=== PATIENT | male | born 1985 | race Hispanic/Latino ===

== ENCOUNTER 2021-04-28 15:40 | Inpatient (IN) | payer OTHER ==
[~2021-04-28 15:40] MED LIST: Iopamidol-370 76% 500 ML 1 ML ONE
[2021-04-28] MEDS ORDERED: Ketamine 50 MG/ML (10ML VIAL) ONE (15:44)
[2021-04-28] MEDS ORDERED: Rocuronium Bromide 10 MG/ML (10ML VIAL) ONE (15:44)
[2021-04-28] MEDS ORDERED: Fentanyl CADD 100 ML IV SCH ×2 (16:00→17:00)
[2021-04-28 16:10] LABS: #Basophils 0.1 thou/uL (0.0-0.2); #Eosinphils 0.8 thou/uL (0.0-0.7); #Lymphocytes 2.6 thou/uL (1.20-3.40); #Monocytes 0.6 thou/uL (0.11-0.59); #Neutrophils 1.6 thou/uL (1.40-6.50); %Basophils 1.1 % (0.0-1.0); %Eosinophils 14.9 % (0.0-10.0); %Lymphocytes 46.2 % (21.0-51.0); %Monocytes 9.8 % (0.0-10.0); Hemoglobin 15.1 g/dL (14.0-18.0); Mean Corpuscular HGB CONC 33.1 g/dL (32.0-36.0); Mean Corpuscular Volume 99.9 fL (78.0-98.0); Mean Platelet Volume 8.3 fL (7.4-10.4); Platelet Count 145 thou/uL (130-400); RBC Distribution Width 12.9 % (11.5-14.5); Red Blood Cell (RBC) Count 4.57 mill/uL (4.70-6.10); White Blood Cell (WBC) Count 5.7 thou/uL (4.8-10.8)
[2021-04-28 16:20] LABS: INR-International Normal Ratio 1.1
[2021-04-28 16:21] LABS: PTT 33.7 sec (22.9-36.1)
[2021-04-28] MEDS ORDERED: Dextrose 5% in Water 1,000 ML IV PRN (16:27)
[2021-04-28] MEDS ORDERED: hydrALAZINE 20 MG/ML VIAL SLOW IVP PRN (16:27)
[2021-04-28] MEDS ORDERED: Ondansetron PF 4 MG/2 ML Vial IVP PRN (16:27)
[2021-04-28] MEDS ORDERED: Dextrose 50% Abboject 50 ML SYRINGE SLOW IVP PRN (16:27)
[2021-04-28 16:30] LABS: Bacteria/HPF None Seen HPF (None Seen); Bilirubin Negative (Negative); Blood, Urine Negative (Negative); Clarity Clear (Clear); Glucose, Urine (Dipstick) Normal (Negative); Ketone, Urine Negative (Negative); Leukocyte Negative Leu/uL (Negative); Nitrite Negative (Negative); Protein, Urine (Dipstick) Negative (Neg-Trace); RBC/HPF None Seen HPF (0-3); Specific Gravity, Urine 1.008 (1.002-1.036); Squamous Epithelial None Seen HPF (0-3); Urobilinogen Normal mg/dL (Less than 2); WBC/HPF 0-3 HPF (0-3)
[2021-04-28 16:32] LABS: Actual Bicarbonate (HCO3a) 24.7 mEq/L (22-28); Analyzer IN Cardio ER; CO2 Tension 36.5 mmHg (35.0-45.0); Calcium, Ionized (arterial) 1.05 mmol/L (1.12-1.30); Carboxyhemoglobin (COHb) 0.4 gm% (0.0-3.0); Hemoglobin (Hb) 14.1 g/dL (14.0-18.0); O2 Tension (PaO2), arterial 222.9 mmHg (80.0-100.0); Puncture Site RRA; pH, Arterial 7.45 (7.35-7.45)
[2021-04-28 16:33] LABS: ALV-art Gradient 87.975 mmHg (0-20)
[2021-04-28] MEDS ORDERED: Ventilator Sedation Protocol 1 EACH FS ONE (16:34)
[2021-04-28 16:43] LABS: ALT (SGPT) 79 U/L (8-55); AST (SGOT) 131 U/L (5-34); Alkaline Phosphatase 100 U/L (40-110); Anion Gap 15 mmol/L (10-20); BUN (Urea Nitrogen) 8 mg/dL (8.9-20.6); Bilirubin, Total 0.4 mg/dL (0.2-1.2); Calc. Creatinine Clearance 0 mL/min (70-130); Calcium 8.7 mg/dL (7.8-10.44); Carbon Dioxide 25 mmol/L (22-29); Chloride 106 mmol/L (98-107); Globulin 4.4 g/dL (2.4-3.5); Glucose 93 mg/dL (70-105); Potassium 3.9 mmol/L (3.5-5.1); Protein, Total 8.4 g/dL (6.0-8.3); Sodium 142 mmol/L (136-145)
[2021-04-28 16:51] LABS: Magnesium 1.9 mg/dL (1.6-2.6); Phosphorus 3.1 mg/dL (2.3-4.7)
[2021-04-28] MEDS ORDERED: levETIRAcetam 500 MG/100 ML PREMIX BAG ONE (16:53)
[2021-04-28] MEDS ORDERED: DISCONTINUE PREVIOUS NARCOTIC PAIN MEDICATIONS AND BENZODIAZEPINES FS SCH (17:00)
[2021-04-28] MEDS ORDERED: Fentanyl BOLUS 250 ML IVPB PRN (17:00)
[2021-04-28] MEDS ORDERED: Propofol BOLUS 1,000 MG/100 ML VIAL IV PRN (17:00)
[2021-04-28] MEDS ORDERED: Morphine 2 MG/ML VIAL SLOW IVP PRN (17:00)
[2021-04-28 17:03] LABS: Alcohol 334 mg/dL (Less than 10)
[2021-04-28] MEDS ORDERED: Propofol 1,000 MG/100 ML VIAL IV ONE (17:04)
[2021-04-28 17:14] LABS: SARS-CoV-2 NAA Rapid Test Not Detected (NotDetected)
[2021-04-28] MEDS: Lorazepam 2 MG/ML VIAL SLOW IVP PRN (17:40)
[2021-04-28] MEDS ORDERED: Piperacillin/Tazobactam 3.375 GM in Sodium Chloride 0.9% 100 ML IVPB SCH ×2 (18:15→22:00)
[2021-04-28 20:12] LABS: Amphetamine Not Detected (NotDetected); Barbiturates Screen Not Detected (NotDetected); Benzodiazepine Screen Detected (NotDetected); Cocaine Metabolite Screen Not Detected (NotDetected); Methadone Not Detected (NotDetected); Methamphetamine Not Detected (NotDetected); Opiate Screen Not Detected (NotDetected); Oxycodone Screen Not Detected (NotDetected); Phencyclidine (PCP) Not Detected (NotDetected); THC/Cannabinoid Screen Not Detected (NotDetected); Tricyclic Screen Not Detected (NotDetected)
[2021-04-28] MEDS: Sodium Chloride 0.9% 1,000 ML IV SCH (20:54)
[2021-04-28] MEDS: Famotidine/PF 20 mg/2ml Vial SLOW IVP SCH (20:55)
[2021-04-28] MEDS: levETIRAcetam in NS 500 MG in Premix Bag 1 BAG IVPB SCH (20:57)
[2021-04-28] MEDS: Propofol 1,000 MG/100 ML VIAL IV PRN (22:43)
[2021-04-29] MEDS: Piperacillin/Tazobactam 3.375 GM in Sodium Chloride 0.9% 100 ML IVPB SCH ×3 (01:19→17:06)
[2021-04-29] MEDS: Propofol 1,000 MG/100 ML VIAL IV PRN ×4 (01:19→20:06)
[2021-04-29] MEDS: Sodium Chloride 0.9% 1,000 ML IV SCH ×3 (01:19→20:06)
[2021-04-29 04:10] LABS: #Basophils 0.1 thou/uL (0.0-0.2); #Eosinphils 0.4 thou/uL (0.0-0.7); #Lymphocytes 1.4 thou/uL (1.20-3.40); #Monocytes 0.8 thou/uL (0.11-0.59); #Neutrophils 4.7 thou/uL (1.40-6.50); %Basophils 0.8 % (0.0-1.0); %Lymphocytes 19.4 % (21.0-51.0); %Monocytes 10.2 % (0.0-10.0); %Neutrophils 63.7 % (42.0-75.0); Hemoglobin 12.7 g/dL (14.0-18.0); Mean Corpuscular HGB CONC 32.9 g/dL (32.0-36.0); Mean Corpuscular Hemoglobin 32.6 pg (27.0-31.0); Mean Platelet Volume 8.4 fL (7.4-10.4); Platelet Count 132 thou/uL (130-400); RBC Distribution Width 12.7 % (11.5-14.5); Red Blood Cell (RBC) Count 3.88 mill/uL (4.70-6.10); White Blood Cell (WBC) Count 7.4 thou/uL (4.8-10.8)
[2021-04-29 04:29] LABS: Anion Gap 17 mmol/L (10-20); BUN (Urea Nitrogen) 8 mg/dL (8.9-20.6); Calc. Creatinine Clearance 183 mL/min (70-130); Calcium 7.7 mg/dL (7.8-10.44); Carbon Dioxide 20 mmol/L (22-29); Chloride 109 mmol/L (98-107); Glucose 76 mg/dL (70-105); Magnesium 1.4 mg/dL (1.6-2.6); Potassium 3.5 mmol/L (3.5-5.1); Sodium 142 mmol/L (136-145)
[2021-04-29 04:31] LABS: CK (CPK) 83 U/L (30-200); Phosphorus 2.5 mg/dL (2.3-4.7)
[2021-04-29] MEDS ORDERED: Morphine 4 MG/ML VIAL SLOW IVP PRN (05:34)
[2021-04-29] MEDS: Acetaminophen 650 MG/20.3 ML UDCUP PO PRN ×2 (05:43→16:35)
[2021-04-29] MEDS ORDERED: Potassium Phosphate 15 MMOL in Sodium Chloride 0.9% 250 ML 250 ML IVPB SCH (05:45)
[2021-04-29] MEDS: Magnesium 2 GM/50 ML 2 GM in Premix Bag 1 BAG IVPB SCH ×2 (06:39→07:44)
[2021-04-29 07:21] LABS: Actual Bicarbonate (HCO3a) 23.6 mEq/L (22-28); Base Excess (BEa) 0.5 mEq/L (-2.0 to +3.0); CO2 Tension 33.5 mmHg (35.0-45.0); Calcium, Ionized (arterial) 1.04 mmol/L (1.12-1.30); Carboxyhemoglobin (COHb) 0.5 gm% (0.0-3.0); Hemoglobin (Hb) 13.3 g/dL (14.0-18.0); O2 Tension (PaO2), arterial 106.2 mmHg (80.0-100.0); Potassium - ABG Lab 3.58 mmol/L (3.70-5.30); pH, Arterial 7.47 (7.35-7.45)
[2021-04-29 07:30] LABS: Puncture Site LRA
[2021-04-29 07:31] LABS: ALV-art Gradient 137.125 mmHg (0-20)
[2021-04-29] MEDS: Famotidine/PF 20 mg/2ml Vial SLOW IVP SCH ×2 (09:00→20:06)
[2021-04-29] MEDS: Multivitamin W/ Minerals 1 TAB PO SCH (09:00)
[2021-04-29] MEDS: Thiamine 100 MG TAB PO SCH (09:00)
[2021-04-29] MEDS: levETIRAcetam in NS 500 MG in Premix Bag 1 BAG IVPB SCH (09:00)
[2021-04-29] MEDS: Enoxaparin Sodium 40 MG/0.4 ML SYRINGE SC SCH (09:00)
[2021-04-29] MEDS: Folic Acid 1 MG TAB PO SCH (09:00)
[2021-04-29] MEDS ORDERED: Calcium Carbonate 500 MG TAB PO SCH (09:00)
[2021-04-29] MEDS ORDERED: levETIRAcetam in NS 500 MG in Premix Bag 1 BAG IVPB SCH (15:00)
[2021-04-29] MEDS: Lorazepam 2 MG/ML VIAL SLOW IVP PRN ×2 (15:03→21:18)
[2021-04-29] MEDS: Fentanyl 100 MCG/2 ML VIAL SLOW IVP PRN (16:21)
[2021-04-29] MEDS: levETIRAcetam in NS 1,000 MG in Premix Bag 1 BAG IVPB SCH (21:18)
[2021-04-30] MEDS: Fentanyl 100 MCG/2 ML VIAL SLOW IVP PRN (01:24)
[2021-04-30] MEDS: Piperacillin/Tazobactam 3.375 GM in Sodium Chloride 0.9% 100 ML IVPB SCH ×3 (01:24→18:09)
[2021-04-30] MEDS: Propofol 1,000 MG/100 ML VIAL IV PRN ×3 (03:01→19:57)
[2021-04-30 05:30] VITALS: BMI 28.9
[2021-04-30] MEDS: Sodium Chloride 0.9% 1,000 ML IV SCH ×3 (05:38→19:56)
[2021-04-30 06:17] LABS: #Eosinphils 0.7 thou/uL (0.0-0.7); #Lymphocytes 1.1 thou/uL (1.20-3.40); #Monocytes 0.4 thou/uL (0.11-0.59); #Neutrophils 5.8 thou/uL (1.40-6.50); %Basophils 0.2 % (0.0-1.0); %Lymphocytes 13.9 % (21.0-51.0); %Neutrophils 71.8 % (42.0-75.0); Hemoglobin 13.8 g/dL (14.0-18.0); Mean Corpuscular HGB CONC 34.7 g/dL (32.0-36.0); Mean Corpuscular Hemoglobin 34.6 pg (27.0-31.0); Mean Corpuscular Volume 99.7 fL (78.0-98.0); Mean Platelet Volume 10.4 fL (7.4-10.4); Platelet Count 115 thou/uL (130-400); Platelet Morphology Comment Appears Decreased; RBC Distribution Width 12.7 % (11.5-14.5); Red Blood Cell (RBC) Count 3.98 mill/uL (4.70-6.10)
[2021-04-30 07:19] LABS: Albumin 3.4 g/dL (3.5-5.0)
[2021-04-30 07:20] LABS: Chloride 108 mmol/L (98-107); Potassium 3.9 mmol/L (3.5-5.1); Sodium 136 mmol/L (136-145)
[2021-04-30 07:21] LABS: Calcium 7.9 mg/dL (7.8-10.44)
[2021-04-30 07:22] LABS: Globulin 3.3 g/dL (2.4-3.5); Glucose 86 mg/dL (70-105); Protein, Total 6.7 g/dL (6.0-8.3)
[2021-04-30 07:23] LABS: Anion Gap 13 mmol/L (10-20); Carbon Dioxide 19 mmol/L (22-29)
[2021-04-30 07:24] LABS: Bilirubin, Total 1.5 mg/dL (0.2-1.2)
[2021-04-30 07:25] LABS: Alkaline Phosphatase 66 U/L (40-110); Calc. Creatinine Clearance 197 mL/min (70-130)
[2021-04-30 07:26] LABS: BUN (Urea Nitrogen) 5 mg/dL (8.9-20.6)
[2021-04-30 07:27] LABS: AST (SGOT) 63 U/L (5-34); Magnesium 1.9 mg/dL (1.6-2.6)
[2021-04-30 07:28] LABS: ALT (SGPT) 46 U/L (8-55)
[2021-04-30 07:38] LABS: Phosphorus 1.8 mg/dL (2.3-4.7)
[2021-04-30] MEDS: levETIRAcetam in NS 1,000 MG in Premix Bag 1 BAG IVPB SCH ×2 (08:00→19:56)
[2021-04-30] MEDS ORDERED: Potassium Phosphate 15 MMOL in Sodium Chloride 0.9% 250 ML 250 ML IVPB SCH (08:15)
[2021-04-30] MEDS ORDERED: Potassium Phosphate 15 MMOL in Sodium Chloride 0.9% 100 ML IVPB SCH (08:15)
[2021-04-30] MEDS: PARoxetine 20 MG TAB PO SCH (08:28)
[2021-04-30] MEDS: Famotidine/PF 20 mg/2ml Vial SLOW IVP SCH ×2 (08:29→19:56)
[2021-04-30] MEDS: Folic Acid 1 MG TAB PO SCH (08:29)
[2021-04-30] MEDS: Multivitamin W/ Minerals 1 TAB PO SCH (08:29)
[2021-04-30] MEDS: Thiamine 100 MG TAB PO SCH (08:29)
[2021-04-30] MEDS: Enoxaparin Sodium 40 MG/0.4 ML SYRINGE SC SCH (08:29)
[2021-04-30] MEDS: Oxazepam 10 MG CAP PO SCH ×2 (14:38→21:12)
[2021-04-30] MEDS ORDERED: Ondansetron PF 4 MG/2 ML Vial IVP PRN (16:05)
[2021-04-30] MEDS ORDERED: Morphine 4 MG/ML VIAL ONE (16:43)
[2021-04-30] MEDS ORDERED: Dexmedetomidine 1,000 MCG in Sodium Chloride 0.9% 250 ML 240 ML IVPB SCH (18:45)
[2021-05-01] MEDS: Piperacillin/Tazobactam 3.375 GM in Sodium Chloride 0.9% 100 ML IVPB SCH ×3 (00:31→17:13)
[2021-05-01] MEDS: Sodium Chloride 0.9% 1,000 ML IV SCH ×3 (01:01→21:20)
[2021-05-01] MEDS: Propofol 1,000 MG/100 ML VIAL IV PRN (03:26)
[2021-05-01 04:36] LABS: #Eosinphils 1.1 thou/uL (0.0-0.7); #Lymphocytes 1.2 thou/uL (1.20-3.40); #Monocytes 0.7 thou/uL (0.11-0.59); #Neutrophils 5.3 thou/uL (1.40-6.50); %Basophils 0.5 % (0.0-1.0); %Eosinophils 12.8 % (0.0-10.0); %Lymphocytes 14.7 % (21.0-51.0); %Neutrophils 64.1 % (42.0-75.0); Hemoglobin 13.7 g/dL (14.0-18.0); Mean Corpuscular HGB CONC 32.6 g/dL (32.0-36.0); Mean Corpuscular Hemoglobin 32.9 pg (27.0-31.0); Mean Platelet Volume 9.5 fL (7.4-10.4); Platelet Count 109 thou/uL (130-400); RBC Distribution Width 12.3 % (11.5-14.5); Red Blood Cell (RBC) Count 4.18 mill/uL (4.70-6.10); White Blood Cell (WBC) Count 8.3 thou/uL (4.8-10.8)
[2021-05-01 05:10] LABS: ALT (SGPT) 48 U/L (8-55); AST (SGOT) 73 U/L (5-34); Albumin 3.5 g/dL (3.5-5.0); Alkaline Phosphatase 72 U/L (40-110); Anion Gap 17 mmol/L (10-20); BUN (Urea Nitrogen) 6 mg/dL (8.9-20.6); Bilirubin, Total 1.3 mg/dL (0.2-1.2); Calc. Creatinine Clearance 200 mL/min (70-130); Calcium 8.5 mg/dL (7.8-10.44); Carbon Dioxide 16 mmol/L (22-29); Chloride 106 mmol/L (98-107); Globulin 3.9 g/dL (2.4-3.5); Glucose 87 mg/dL (70-105); Magnesium 1.7 mg/dL (1.6-2.6); Phosphorus 2.5 mg/dL (2.3-4.7); Protein, Total 7.4 g/dL (6.0-8.3); Sodium 135 mmol/L (136-145)
[2021-05-01] MEDS: Oxazepam 10 MG CAP PO SCH ×3 (05:36→22:51)
[2021-05-01] MEDS: Famotidine/PF 20 mg/2ml Vial SLOW IVP SCH ×2 (07:59→21:20)
[2021-05-01] MEDS: Enoxaparin Sodium 40 MG/0.4 ML SYRINGE SC SCH (07:59)
[2021-05-01] MEDS: Folic Acid 1 MG TAB PO SCH (08:00)
[2021-05-01] MEDS: PARoxetine 20 MG TAB PO SCH (08:00)
[2021-05-01] MEDS: Multivitamin W/ Minerals 1 TAB PO SCH (08:00)
[2021-05-01] MEDS: Thiamine 100 MG TAB PO SCH (08:00)
[2021-05-01] MEDS: levETIRAcetam in NS 1,000 MG in Premix Bag 1 BAG IVPB SCH (08:04)
[2021-05-01] MEDS: Acetaminophen 650 MG/20.3 ML UDCUP PO PRN (21:23)
[2021-05-01] MEDS: levETIRAcetam 500 MG TAB PO SCH (21:44)
[2021-05-01] MEDS ORDERED: Ibuprofen 200 MG TAB PO PRN (22:34)
[2021-05-02] MEDS: Sodium Chloride 0.9% 1,000 ML IV SCH (03:09)
[2021-05-02] MEDS: Oxazepam 10 MG CAP PO SCH ×2 (05:51→11:06)
[2021-05-02 06:12] LABS: #Basophils 0.1 thou/uL (0.0-0.2); #Eosinphils 0.8 thou/uL (0.0-0.7); #Lymphocytes 1.4 thou/uL (1.20-3.40); #Neutrophils 5.2 thou/uL (1.40-6.50); %Basophils 0.8 % (0.0-1.0); %Eosinophils 9.3 % (0.0-10.0); %Lymphocytes 16.6 % (21.0-51.0); %Monocytes 12.2 % (0.0-10.0); Hemoglobin 14.2 g/dL (14.0-18.0); Mean Corpuscular HGB CONC 32.9 g/dL (32.0-36.0); Mean Corpuscular Hemoglobin 33.1 pg (27.0-31.0); Mean Platelet Volume 9.2 fL (7.4-10.4); Platelet Count 136 thou/uL (130-400); RBC Distribution Width 12.4 % (11.5-14.5); White Blood Cell (WBC) Count 8.5 thou/uL (4.8-10.8)
[2021-05-02 06:25] LABS: Albumin 4.1 g/dL (3.5-5.0); Alkaline Phosphatase 77 U/L (40-110); Anion Gap 14 mmol/L (10-20); BUN (Urea Nitrogen) 9 mg/dL (8.9-20.6); Bilirubin, Total 1.1 mg/dL (0.2-1.2); Calc. Creatinine Clearance 185 mL/min (70-130); Calcium 9.3 mg/dL (7.8-10.44); Carbon Dioxide 24 mmol/L (22-29); Chloride 102 mmol/L (98-107); Glucose 94 mg/dL (70-105); Potassium 3.5 mmol/L (3.5-5.1); Protein, Total 8.1 g/dL (6.0-8.3); Sodium 136 mmol/L (136-145)
[2021-05-02 06:26] LABS: ALT (SGPT) 55 U/L (8-55); AST (SGOT) 78 U/L (5-34); Magnesium 1.6 mg/dL (1.6-2.6)
[2021-05-02 07:12] VITALS: TEMP 98.3
[2021-05-02] MEDS: Famotidine/PF 20 mg/2ml Vial SLOW IVP SCH (08:28)
[2021-05-02] MEDS: Folic Acid 1 MG TAB PO SCH (08:28)
[2021-05-02] MEDS: Enoxaparin Sodium 40 MG/0.4 ML SYRINGE SC SCH (08:28)
[2021-05-02] MEDS: PARoxetine 20 MG TAB PO SCH (08:28)
[2021-05-02] MEDS: levETIRAcetam 500 MG TAB PO SCH (08:28)
[2021-05-02] MEDS: Thiamine 100 MG TAB PO SCH (08:28)
[2021-05-02] MEDS: Multivitamin W/ Minerals 1 TAB PO SCH (08:28)
[2021-05-02] MEDS: Acetaminophen 650 MG/20.3 ML UDCUP PO PRN (11:05)
[2021-05-02 11:27] VITALS: BP 150/93
== END 2021-05-02 12:21 | disposition home or self-care (01) | DRG 896 ==
LOC: ERS 15:40 → EDBD 15:40 → CCU 16:27 → SURG A 05-01 18:51
PROVIDERS: ADMIT Student in an Organized Health Care Education/Training Program; ATTEND Student in an Organized Health Care Education/Training Program
PROC: 5A1945Z Respiratory Ventilation, 24-96 Consecutive Hours (ICD-10-PCS; principal; 2021-04-28)
PROC: 0BH17EZ Insertion of Endotracheal Airway into Trachea, Via Natural or Artificial Opening (ICD-10-PCS; 2021-04-28)
DX: F10.229 Alcohol dependence with intoxication, unspecified (principal); J69.0 Pneumonitis due to inhalation of food and vomit; J96.90 Respiratory failure, unspecified, unspecified whether with hypoxia or hypercapnia; R40.2342 Coma scale, best motor response, flexion withdrawal, at arrival to emergency department; R40.2122 Coma scale, eyes open, to pain, at arrival to emergency department; R40.2212 Coma scale, best verbal response, none, at arrival to emergency department; F10.239 Alcohol dependence with withdrawal, unspecified; S06.0X0A Concussion without loss of consciousness, initial encounter; Z20.822 Contact with and (suspected) exposure to COVID-19; F32.9 Major depressive disorder, single episode, unspecified; F41.9 Anxiety disorder, unspecified; G40.909 Epilepsy, unspecified, not intractable, without status epilepticus; G93.89 Other specified disorders of brain; F17.210 Nicotine dependence, cigarettes, uncomplicated; Y90.8 Blood alcohol level of 240 mg/100 ml or more; G25.2 Other specified forms of tremor; E83.42 Hypomagnesemia; E83.39 Other disorders of phosphorus metabolism; Z78.1 Physical restraint status; V89.2XXA Person injured in unspecified motor-vehicle accident, traffic, initial encounter; Z79.899 Other long term (current) drug therapy
CPT/HCPCS: 31500; 36415; 36416; 36600; 51702; 70450; 71045; 71260; 72125; 74177; 80048; 80053; 80177; 80306; 80307; 81001; 82550; 82805; 83605; 83735; 84100; 84146; 84484; 85025; 85610; 85730; 86850; 86900; 86901; 93005; 94002; 94003; 95816; 95819; 95957; 96365; 96375; G0390; J1650; J1953; J2060; J2543; J2704; J3010; J3475; J3490; J7050; Q9967; S0028; U0002

== ENCOUNTER 2023-01-18 10:25 | Inpatient (IN) | payer SELFPAY ==
[2023-01-18] MEDS ORDERED: Morphine 4 MG/ML VIAL ONE (11:09)
[2023-01-18] MEDS ORDERED: Ondansetron PF 4 MG/2 ML Vial ONE ×2 (11:09→13:43)
[2023-01-18 11:20] LABS: #Basophils 0.1 thou/uL (0.0-0.2); #Eosinphils 0.4 thou/uL (0.0-0.7); #Monocytes 0.5 thou/uL (0.11-0.59); #Neutrophils 1.7 thou/uL (1.40-6.50); %Basophils 2.6 % (0.0-1.0); %Eosinophils 7.9 % (0.0-10.0); %Lymphocytes 41.9 % (21.0-51.0); %Neutrophils 36.4 % (42.0-75.0); Hemoglobin 13.3 g/dL (14.0-18.0); Mean Corpuscular HGB CONC 33.7 g/dL (32.0-36.0); Mean Corpuscular Hemoglobin 32.7 pg (27.0-31.0); Mean Corpuscular Volume 97.1 fl (78.0-98.0); Mean Platelet Volume 11.4 fL (7.4-10.4); Platelet Count 216 10x3/uL (130-400); Red Blood Cell (RBC) Count 4.07 mill/uL (4.70-6.10); White Blood Cell (WBC) Count 4.5 10x3/uL (4.8-10.8)
[2023-01-18 11:44] LABS: ALT (SGPT) 106 U/L (8-55); AST (SGOT) 109 U/L (5-34); Albumin 4.1 g/dL (3.5-5.0); Alkaline Phosphatase 149 U/L (40-110); Anion Gap 14 mmol/L (10-20); BUN (Urea Nitrogen) 7 mg/dL (8.9-20.6); Bilirubin, Total 0.2 mg/dL (0.2-1.2); Calc. Creatinine Clearance 0 mL/min (70-130); Calcium 8.3 mg/dL (7.8-10.44); Carbon Dioxide 24 mmol/L (22-29); Chloride 107 mmol/L (98-107); Estimated GFR 123; Globulin 3.3 g/dL (2.4-3.5); Glucose 124 mg/dL (70-105); Potassium 3.9 mmol/L (3.5-5.1); Protein, Total 7.4 g/dL (6.0-8.3); Sodium 141 mmol/L (136-145)
[2023-01-18 11:45] LABS: Acetaminophen Less than 10 mcg/mL (10.0-30.0); Alcohol 325.4 mg/dL (Less than 10); Lipase 47 U/L (8-78); Salicylate Less than 8.0 mg/dL (15.0-30.0)
[2023-01-18 11:52] LABS: Bacteria/HPF None Seen HPF (None Seen); Bilirubin Negative (Negative); Blood, Urine Negative (Negative); CAUTI Indications for Culture Pelvic or flank pain; Clarity Clear (Clear); Glucose, Urine (Dipstick) Normal (Negative); Ketone, Urine Negative (Negative); Leukocyte Negative Leu/uL (Negative); Nitrite Negative (Negative); Protein, Urine (Dipstick) Negative (Neg-Trace); RBC/HPF 0-3 HPF (0-3); Specific Gravity, Urine 1.018 (1.002-1.036); Squamous Epithelial 0-3 HPF (0-3); Urobilinogen Normal mg/dL (Less than 2); WBC/HPF 0-3 HPF (0-3); pH, Urine 6.5 (5.0-9.0)
[2023-01-18 11:56] LABS: Urine Culture Reflex No No
[2023-01-18 12:01] LABS: Amphetamine Not Detected (NotDetected); Barbiturates Screen Not Detected (NotDetected); Benzodiazepine Screen Not Detected (NotDetected); Cocaine Metabolite Screen Not Detected (NotDetected); Methadone Not Detected (NotDetected); Methamphetamine Not Detected (NotDetected); Opiate Screen Not Detected (NotDetected); Oxycodone Screen Not Detected (NotDetected); Phencyclidine (PCP) Not Detected (NotDetected); THC/Cannabinoid Screen Not Detected (NotDetected); Tricyclic Screen Not Detected (NotDetected)
[2023-01-18] MEDS ORDERED: Thiamine 100 MG TAB ONE (12:30)
[2023-01-18] MEDS ORDERED: Ondansetron ODT 4 MG TAB PO PRN (12:59)
[2023-01-18] MEDS ORDERED: Lorazepam 1 MG TAB PO PRN (12:59)
[2023-01-18] MEDS ORDERED: Lorazepam 2 MG/ML VIAL IM PRN (12:59)
[2023-01-18] MEDS ORDERED: Thiamine HCl 200 MG/2 ML VIAL SLOW IVP SCH (13:00)
[2023-01-18] MEDS ORDERED: Ondansetron PF 4 MG/2 ML Vial IVP PRN (13:00)
[2023-01-18] MEDS ORDERED: HYDROcodone/Acetaminophen 5/325 mg Tablet PO PRN (13:00)
[2023-01-18] MEDS ORDERED: Electrolyte Replacement Protocol 1 EACH FS SCH (13:00)
[2023-01-18] MEDS ORDERED: Acetaminophen 325 MG TAB PO PRN (13:00)
[2023-01-18] MEDS ORDERED: Multivit, Therapeutic 1 TAB PO SCH (13:30)
[2023-01-18] MEDS ORDERED: Folic Acid 1 MG TAB PO SCH (13:30)
[2023-01-18] MEDS ORDERED: Multivitamins, Adult 10 ML, Folic Acid 1 MG, Thiamine HCl 100 MG in Dextrose 5 %-0.45 %... IV SCH (14:15)
[2023-01-18 14:19] LABS: Phosphorus 2.5 mg/dL (2.3-4.7)
[2023-01-18 14:20] LABS: Magnesium 1.8 mg/dL (1.6-2.6)
[2023-01-18 14:21] LABS: Bilirubin, Direct 0.2 mg/dL (0.1-0.3)
[2023-01-18 14:23] VITALS: BMI 27.1
[2023-01-18] MEDS ORDERED: Folic Acid 1 MG in Admixture Fee 1 EACH IVP SCH (14:30)
[2023-01-18] MEDS ORDERED: levETIRAcetam 500 MG TAB PO SCH (14:45)
[2023-01-18] MEDS ORDERED: Iopamidol-370 76% 500 ML MDV (1 ML CHARGE) ONE (15:35)
[2023-01-18] MEDS ORDERED: LORazepam 2 MG/ML SYR.(CARPUJECT) ONE (16:16)
[2023-01-18] MEDS ORDERED: Lorazepam 1 MG TAB ONE (16:23)
[2023-01-18] MEDS: Lorazepam 1 MG TAB PO SCH ×2 (16:42→20:31)
[2023-01-18 19:09] LABS: Syphilis Antibody Nonreactive (Nonreactive); Syphilis Antibody Index 0.05 S/CO (<1.00 Non-Reactive)
[2023-01-18] MEDS: levETIRAcetam 500 MG TAB PO SCH (20:29)
[2023-01-19] MEDS: Lorazepam 1 MG TAB PO SCH ×4 (01:32→19:53)
[2023-01-19 05:04] LABS: #Basophils 0.1 thou/uL (0.0-0.2); #Eosinphils 0.4 thou/uL (0.0-0.7); #Monocytes 0.6 thou/uL (0.11-0.59); #Neutrophils 2.2 thou/uL (1.40-6.50); %Basophils 1.9 % (0.0-1.0); %Eosinophils 8.6 % (0.0-10.0); %Lymphocytes 28.1 % (21.0-51.0); %Monocytes 13.8 % (0.0-10.0); %Neutrophils 47.2 % (42.0-75.0); Hemoglobin 13.4 g/dL (14.0-18.0); Mean Corpuscular HGB CONC 33.7 g/dL (32.0-36.0); Mean Corpuscular Hemoglobin 32.8 pg (27.0-31.0); Mean Corpuscular Volume 97.5 fl (78.0-98.0); Mean Platelet Volume 11.2 fL (7.4-10.4); Platelet Count 184 10x3/uL (130-400); RBC Distribution Width 13.7 % (11.5-14.5); Red Blood Cell (RBC) Count 4.08 mill/uL (4.70-6.10); White Blood Cell (WBC) Count 4.6 10x3/uL (4.8-10.8)
[2023-01-19 05:58] LABS: ALT (SGPT) 88 U/L (8-55); AST (SGOT) 92 U/L (5-34); Albumin 3.6 g/dL (3.5-5.0); Alkaline Phosphatase 99 U/L (40-110); Anion Gap 13 mmol/L (10-20); BUN (Urea Nitrogen) 7 mg/dL (8.9-20.6); Bilirubin, Total 0.5 mg/dL (0.2-1.2); Calc. Creatinine Clearance 158 mL/min (70-130); Calcium 8.7 mg/dL (7.8-10.44); Carbon Dioxide 26 mmol/L (22-29); Chloride 102 mmol/L (98-107); Cholesterol 216 mg/dl (< 200 Desired); Estimated GFR 118; Globulin 3.3 g/dL (2.4-3.5); Glucose 106 mg/dL (70-105); HDL Cholesterol 31 mg/dL (>60 Neg Risk); LDL Cholesterol, Calculated 138 mg/dL; Potassium 3.7 mmol/L (3.5-5.1); Protein, Total 6.9 g/dL (6.0-8.3); Sodium 137 mmol/L (136-145); Triglycerides 235 mg/dL (Less than 150)
[2023-01-19] MEDS ORDERED: Magnesium 2 GM/50 ML(in water) 2 GM in Premix Bag 1 BAG IVPB SCH (08:00)
[2023-01-19] MEDS ORDERED: Folic Acid 1 MG TAB PO SCH (09:00)
[2023-01-19] MEDS: levETIRAcetam 500 MG TAB PO SCH ×2 (09:03→21:05)
[2023-01-19] MEDS: Multivit, Therapeutic 1 TAB PO SCH (09:03)
[2023-01-19] MEDS: PARoxetine 20 MG TAB PO SCH (09:03)
[2023-01-19] MEDS: Folic Acid 1 MG in Admixture Fee 1 EACH IVP SCH (10:22)
[2023-01-19] MEDS ORDERED: Lorazepam 1 MG TAB PO PRN (12:59)
[2023-01-19] MEDS ORDERED: Lorazepam 2 MG/ML VIAL SLOW IVP SCH ×2 (13:15→13:45)
[2023-01-19] MEDS: chlordiazePOXIDE HCl 25 MG CAP PO SCH ×2 (14:19→21:05)
[2023-01-19] MEDS ORDERED: hydrOXYzine 25 MG TAB PO SCH (20:15)
[2023-01-19] MEDS: Atorvastatin Calcium 40 MG TAB PO SCH (21:05)
[2023-01-20] MEDS: Lorazepam 1 MG TAB PO SCH ×2 (01:06→05:55)
[2023-01-20 05:52] LABS: #Basophils 0.1 thou/uL (0.0-0.2); #Eosinphils 0.5 thou/uL (0.0-0.7); #Monocytes 0.7 thou/uL (0.11-0.59); #Neutrophils 2.2 thou/uL (1.40-6.50); %Basophils 1.7 % (0.0-1.0); %Eosinophils 11.6 % (0.0-10.0); %Lymphocytes 25.1 % (21.0-51.0); %Monocytes 14.8 % (0.0-10.0); %Neutrophils 46.4 % (42.0-75.0); Hemoglobin 13.8 g/dL (14.0-18.0); Mean Corpuscular HGB CONC 33.8 g/dL (32.0-36.0); Mean Corpuscular Hemoglobin 32.4 pg (27.0-31.0); Mean Corpuscular Volume 95.8 fl (78.0-98.0); Mean Platelet Volume 11.8 fL (7.4-10.4); Platelet Count 181 10x3/uL (130-400); RBC Distribution Width 13.4 % (11.5-14.5); Red Blood Cell (RBC) Count 4.26 mill/uL (4.70-6.10); White Blood Cell (WBC) Count 4.7 10x3/uL (4.8-10.8)
[2023-01-20 06:19] LABS: ALT (SGPT) 80 U/L (8-55); AST (SGOT) 86 U/L (5-34); Albumin 3.7 g/dL (3.5-5.0); Alkaline Phosphatase 98 U/L (40-110); Anion Gap 13 mmol/L (10-20); BUN (Urea Nitrogen) 10 mg/dL (8.9-20.6); Bilirubin, Total 0.8 mg/dL (0.2-1.2); Calc. Creatinine Clearance 150 mL/min (70-130); Calcium 9.4 mg/dL (7.8-10.44); Carbon Dioxide 24 mmol/L (22-29); Chloride 102 mmol/L (98-107); Estimated GFR 117; Globulin 3.5 g/dL (2.4-3.5); Glucose 105 mg/dL (70-105); Magnesium 1.9 mg/dL (1.6-2.6); Potassium 3.8 mmol/L (3.5-5.1); Protein, Total 7.2 g/dL (6.0-8.3); Sodium 135 mmol/L (136-145)
[2023-01-20] MEDS ORDERED: Magnesium 2 GM/50 ML(in water) 2 GM in Premix Bag 1 BAG IVPB SCH (08:00)
[2023-01-20] MEDS: chlordiazePOXIDE HCl 25 MG CAP PO SCH ×3 (09:03→20:40)
[2023-01-20] MEDS: levETIRAcetam 500 MG TAB PO SCH ×2 (09:03→20:40)
[2023-01-20] MEDS: PARoxetine 20 MG TAB PO SCH (09:04)
[2023-01-20] MEDS: Folic Acid 1 MG in Admixture Fee 1 EACH IVP SCH (09:04)
[2023-01-20] MEDS: Multivit, Therapeutic 1 TAB PO SCH (09:04)
[2023-01-20] MEDS: Lorazepam 0.5 MG TAB PO SCH ×2 (12:29→18:46)
[2023-01-20] MEDS ORDERED: Lorazepam 1 MG TAB PO PRN (12:59)
[2023-01-20] MEDS: Atorvastatin Calcium 40 MG TAB PO SCH (20:40)
[2023-01-21] MEDS: Lorazepam 0.5 MG TAB PO SCH ×2 (00:51→05:59)
[2023-01-21 06:19] LABS: #Basophils 0.1 thou/uL (0.0-0.2); #Eosinphils 0.7 thou/uL (0.0-0.7); #Monocytes 0.6 thou/uL (0.11-0.59); #Neutrophils 2.9 thou/uL (1.40-6.50); %Basophils 1.1 % (0.0-1.0); %Eosinophils 11.6 % (0.0-10.0); %Lymphocytes 24.7 % (21.0-51.0); %Monocytes 10.7 % (0.0-10.0); %Neutrophils 51.5 % (42.0-75.0); Hemoglobin 14.3 g/dL (14.0-18.0); Mean Corpuscular HGB CONC 33.3 g/dL (32.0-36.0); Mean Corpuscular Hemoglobin 32.4 pg (27.0-31.0); Mean Corpuscular Volume 97.5 fl (78.0-98.0); Mean Platelet Volume 11.9 fL (7.4-10.4); Platelet Count 175 10x3/uL (130-400); RBC Distribution Width 13.6 % (11.5-14.5); Red Blood Cell (RBC) Count 4.41 mill/uL (4.70-6.10); White Blood Cell (WBC) Count 5.6 10x3/uL (4.8-10.8)
[2023-01-21 06:47] LABS: ALT (SGPT) 81 U/L (8-55); AST (SGOT) 90 U/L (5-34); Alkaline Phosphatase 120 U/L (40-110); Anion Gap 13 mmol/L (10-20); BUN (Urea Nitrogen) 13 mg/dL (8.9-20.6); Bilirubin, Total 0.7 mg/dL (0.2-1.2); Calc. Creatinine Clearance 150 mL/min (70-130); Calcium 9.2 mg/dL (7.8-10.44); Carbon Dioxide 22 mmol/L (22-29); Chloride 104 mmol/L (98-107); Estimated GFR 117; Globulin 3.8 g/dL (2.4-3.5); Glucose 119 mg/dL (70-105); Magnesium 1.9 mg/dL (1.6-2.6); Protein, Total 7.8 g/dL (6.0-8.3); Sodium 135 mmol/L (136-145)
[2023-01-21] MEDS ORDERED: Magnesium 2 GM/50 ML(in water) 2 GM in Premix Bag 1 BAG IVPB SCH (08:00)
[2023-01-21 08:34] VITALS: BP 116/81; TEMP 98.3
[2023-01-21] MEDS: levETIRAcetam 500 MG TAB PO SCH (08:57)
[2023-01-21] MEDS: Multivit, Therapeutic 1 TAB PO SCH (08:57)
[2023-01-21] MEDS: PARoxetine 20 MG TAB PO SCH (08:57)
[2023-01-21] MEDS: chlordiazePOXIDE HCl 25 MG CAP PO SCH (09:06)
[2023-01-21] MEDS ORDERED: Thiamine 100 MG TAB PO SCH ×2 (09:45→13:00)
[2023-01-21] MEDS: Folic Acid 1 MG in Admixture Fee 1 EACH IVP SCH (10:22)
[2023-01-21] MEDS ORDERED: chlordiazePOXIDE HCl 25 MG CAP PO SCH (12:45)
[2023-01-21] MEDS ORDERED: Lorazepam 0.5 MG TAB PO PRN (12:59)
[2023-01-22] MEDS ORDERED: Thiamine 100 MG TAB PO SCH (09:00)
== END 2023-01-21 14:00 | disposition home or self-care (01) | DRG 640 ==
LOC: ERS 10:25 → ERHOLD 13:23 → OBSVTOIN 15:57 → NEURO 17:57 → T4-B 01-19 16:56
PROVIDERS: ADMIT Internal Medicine; ATTEND Internal Medicine
PROC: 4A10X4Z Monitoring of Central Nervous Electrical Activity, External Approach (ICD-10-PCS; principal; 2023-01-19)
DX: E51.2 Wernicke's encephalopathy (principal); G93.41 Metabolic encephalopathy; F10.239 Alcohol dependence with withdrawal, unspecified; G40.909 Epilepsy, unspecified, not intractable, without status epilepticus; F39 Unspecified mood [affective] disorder; Z79.899 Other long term (current) drug therapy
CPT/HCPCS: 36415; 70450; 70551; 71045; 74177; 80053; 80061; 80177; 80306; 80307; 81001; 82140; 82248; 83690; 83735; 84100; 84484; 85025; 86780; 86850; 86900; 86901; 93005; 95712; 95819; 95957; 96361; 96365; 96367; 96372; 96374; 96375; 96376; G0378; J1650; J2060; J2270; J2405; J3411; J3475; Q9967